=== PATIENT | female | born 2000 | race African-American/Black ===

== ENCOUNTER 2025-05-06 23:17 | Emergency (ER) | payer OTHER, MEDICAID | END 2025-05-06 23:19 | disposition left against medical advice (07) | LOC: ER 23:17 → EDBD 23:17 → ER 23:19 | DX: F99 Mental disorder, not otherwise specified (principal); Z79.899 Other long term (current) drug therapy ==

== ENCOUNTER 2025-05-06 23:37 | Emergency (ER) | payer OTHER, MEDICAID ==
[~2025-05-06] VITALS: Ht 165.1 cm; Wt 99.6 kg
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
== END 2025-05-07 02:43 | disposition home or self-care (01) ==
LOC: ER 23:37
DX: Z20.2 Contact with and (suspected) exposure to infections with a predominantly sexual mode of transmission (principal)